=== PATIENT | female | born 1960 | race Caucasian/White ===

== ENCOUNTER → 2023-08-15 07:15 | Outpatient (REF) | payer OTHER, SELFPAY | LOC: HWRAD 07:15 | PROVIDERS: ATTENDING PHYSICIAN Nurse Practitioner Adult Health; FAMILY PHYSICIAN Family Medicine | DX: Z12.31 Encounter for screening mammogram for malignant neoplasm of breast (principal); Z78.0 Asymptomatic menopausal state | CPT/HCPCS: 77063; 77067; 77080 ==

== ENCOUNTER → 2023-11-07 15:28 | Outpatient (REF) | payer OTHER, SELFPAY | LOC: RAD 15:28 | PROVIDERS: ATTENDING PHYSICIAN Family Medicine | DX: M79.89 Other specified soft tissue disorders (principal) | CPT/HCPCS: 93971 ==

== ENCOUNTER 2024-02-21 17:28 | Emergency (ER) | payer OTHER, SELFPAY ==
[2024-02-21 17:46] VITALS: BP 160/89
[2024-02-21 18:17] LABS: % Basophils 0.2 % (0-2); % Immature Granulocytes 0.2 % (0-0.5); % Lymphocytes 26.8 % (20.5-51.1); % Monocytes 7.2 % (1.7-9.3); % Neutrophils 63.6 % (42.2-75.2); Absolute Eosinophils 0.2 10^3/uL (0-0.7); Absolute Lymphocytes 2.3 10^3/uL (1.2-3.4); Absolute Monocytes 0.6 10^3/uL (0.1-0.6); Absolute Neutrophils 5.4 10^3/uL (1.4-6.5); Hematocrit 36.9 % (37.0-47.0); Hemoglobin 12.6 g/dL (12.0-16.0); Mean Corp Hgb Conc. 34.1 g/dL (33.0-37.0); Mean Corpuscular Hgb 29.9 pg (27.0-31.0); Mean Corpuscular Volume 87.4 fL (81.0-99.0); Mean Platelet Volume 10.2 fL (7.4-10.4); Nucleated Red Blood Cells % 0 %; Platelet Count 230 10^3/uL (130-400); Red Blood Cell Count 4.22 10^6/uL (4.20-5.40); Red Cell Dist. Width 13.2 % (11.5-14.5); White Blood Cell Count 8.5 10^3/uL (4.8-10.8)
[2024-02-21 18:41] LABS: ALT (SGPT) 17 U/L (0-35); AST (SGOT) 24 U/L (14-36); Albumin 4.8 g/dl (3.5-5.0); Alkaline Phosphatase 70 U/L (38-126); Blood Urea Nitrogen 15 mg/dl (7-17); Calcium 10.2 mg/dl (8.4-10.2); Carbon Dioxide 27 mmol/L (22-30); Chloride 101 mmol/L (98-107); Glucose 99 mg/dl (70-99); Potassium 4.3 mmol/L (3.5-5.1); Sodium 143 mmol/L (135-145); Total Bilirubin 0.5 mg/dl (0.2-1.3); Total Protein 7.4 g/dl (6.3-8.2); eGFR > 60.00
[2024-02-21 18:51] LABS: Troponin I < 0.012 ng/ml
[2024-02-21 19:09] LABS: TSH 2.62 uIU/ml (0.47-4.68)
--- NOTE | 2024-02-21 19:43 | ED.GENMED ---
History of Present Illness
General
Chief Complaint: Chest Problem
Time Seen by Provider: 02/21/24 19:43
History of Present Illness
History of Present Illness:
TIME OF INITIAL ENCOUNTER: 7:45 PM
HPI: Patient has had several weeks of palpitations. Today at some point between 4 PM and 5 PM [address], she developed left arm discomfort as well as jaw discomfort and had some chest tightness. She has no significant cardiac risk factors�her
mother is still alive at age 102 and all of her older male siblings have never had a heart attack. She does not have high blood pressure diabetes or high cholesterol. The patient had a treadmill stress test about [address] Dawkins.
EXAM:
GENERAL: Well appearing in no distress
HEENT: Moist oral mucosa
CARDIOVASCULAR: No murmurs, normal heart rate, regular rhythm, No chest wall tenderness
PULMONARY: No respiratory distress, breath sounds are clear and equal
ABDOMEN: Soft with no peritoneal signs, no tenderness
NEUROLOGIC: Excellent strength all extremities, no coordination deficits
PSYCHIATRIC: Appropriate mental status, normal insight and judgement
EXTREMITIES: Nontender, no edema, moves all extremities equally
SKIN: No rash, no lesions
NUMBER AND COMPLEXITY OF PROBLEMS ADDRESSED AT THE ENCOUNTER
� Chronic conditions affecting care: Anemia
� Acute Exacerbation and/or Progression of Chronic Illness: This is a subacute problem
� Differential Diagnosis includes: Anxiety, costochondritis, cervical radiculopathy as symptoms seem to get worse when she had her arm up on the steering wheel and then resolved afterwards, ACS less likely
AMOUNT AND/OR COMPLEXITY OF DATA TO BE REVIEWED AND ANALYZED
� I performed an independent evaluation of and my interpretation is:
EKG: Sinus 72, left axis deviation, LVH
CT:
X-rays: I personally reviewed chest x-ray and see no acute abnormality
Laboratory Studies: CBC, chemistries eluding TSH and troponin unremarkable
Other:
� Review of other/old records: The patient had colonoscopy in 2022, she had a treadmill stress test in 2019
� Clinical information was obtained by an independent historian: I spoke to the at bedside
� Prescriptions/Medications Considered but not given:
� Further testing considered but not performed:
RISK OF COMPLICATIONS AND/OR MORBIDITY OR MORTALITY OF PATIENT MANAGEMENT
� Social determinants of health affecting care: Lives at home
� Discussion with other providers:
� Escalation of care including admission/observation vs risk of discharge considered: No clear indication for admission to the hospital. She is to follow-up with cardiology as an outpatient.
ANY OTHER UPDATES:
9:25 PM: I reassessed the patient. She has had some intermittently vague chest discomfort but repeat troponin and repeat EKG unremarkable.
Past History
Past History
ED Past Medical History: None, Other (dry eyes) and Other
ED Past Surgical History: None
Social History
Tobacco: Non-smoker
Alcohol: Occasional
Personal:
Living: with family
Family History
Family History: Other (Mother with diabetes, father with varicose veins)
Phy Exam
Physical Exam
Physical Exam:
See HPI
Course
Orders/Labs/Results
Orders:
Orders
02/21/24 17:30
Electrocardiogram (*1) Urgent
Reason for Study: Chest Pain
EKG- Treatment ONCE
02/21/24 18:04
Complete Blood Count/With Diff Urgent
Comprehensive Metabolic Panel Urgent
TSH Urgent
Troponin I Urgent
02/21/24 19:39
Chest [CR Chest - 2 Views ] Urgent
Comment:
Reason For Exam: chest pain
02/21/24 20:32
Troponin I Urgent
02/21/24 21:07
EKG [Electrocardiogram (*1)] Urgent
Reason for Study: Chest Pain
02/21/24 21:08
EKG- Treatment ONCE
Abnormal Lab Results
02/21/24
18:04
Hct 36.9 L %
(37.0-47.0)
02/21/24 18:04
02/21/24 18:04
Vital Signs
Initial and Last Documented VS:
Initial Vital Signs
Temp Pulse Resp BP Pulse Ox
98.2 F 78 16 160/89 99
02/21/24 17:46 02/21/24 17:46 02/21/24 17:46 02/21/24 17:46 02/21/24 17:46
Last Documented Vital Signs
Temp Pulse Resp BP Pulse Ox
98.2 F 72 17 138/71 99
02/21/24 17:46 02/21/24 21:30 02/21/24 21:30 02/21/24 21:06 02/21/24 21:30
*Critical Care Note
Total Time (30-74mins, 75-104mins- exclusive of procedures): Not Applicable
ED Attending Note
-
Portions of this chart may have been created with voice recognition software.� Occasional wrong word or��sound alike� substitutions may have occurred due to the inherent limitations of voice recognition software.
Discharge Plan
Departure
Patient Disposition: Home (Routine Discharge)
Date of Disposition: 02/21/24
Time of Disposition: 21:31
Patient with high blood pressure during this ER visit?: Yes
Discharge Problem:
Chest pain
Instructions: Chest Pain CBC Follow Up
Prescriptions:
No Action
Multiple Vitamins
1 dose PO DAILY
Patient Comments:
green-lipped muscle
super B complex with C
vit E
Bonetrex Ca with D
turmeric
CBD oil
cyclosporine [Restasis] 10 DROPS dropperette
1 drp DROP BID
Referrals:
Akbar Donohue MD [Active] - Next open appointment
Jing Lares DO [Family Provider] -
Activity Restrictions/Additional Instructions:
2 cardiac blood works including EKGs are unremarkable. Other basic blood work including thyroid testing is normal. Chest x-ray is clear. Somebody from [facility] cardiology should be calling you tomorrow and if you not hear from them, please
call their group. Return here if worse or other concerns
Interventions
Interventions:
*Risk Screen - Suicide Last Done: 02/21/24 19:54
*General Assessment Last Done: 02/21/24 19:54
*Neglect/Abuse Screening Last Done: 02/21/24 19:54
ED- Fall Risk Assessment Last Done: 02/21/24 19:57
*ED COVID-19 Vaccine History Last Done: 02/21/24 19:54
ED- Cardiac Assessment Last Done: 02/21/24 19:57
ED- Pulmonary Assessment Last Done: 02/21/24 19:57
Discharge Date and Time
Print Language: PUERTO RICAN
[2024-02-21 19:54] VITALS: BMI 27.3
[2024-02-21 19:55] VITALS: BP 157/79
[2024-02-21 21:06] VITALS: BP 138/71
[2024-02-21 21:17] LABS: Troponin I < 0.012 ng/ml
== END 2024-02-21 21:38 | disposition home or self-care (01) ==
LOC: EMR 17:28
PROVIDERS: Student in an Organized Health Care Education/Training Program; EMERGENCY PHYSICIAN Emergency Medicine; FAMILY PHYSICIAN Family Medicine
DX: R07.89 Other chest pain (principal)
CPT/HCPCS: 99285; 71046; 80053; 84443; 84484; 85025; 93005

== ENCOUNTER → 2024-03-07 07:06 | Outpatient (REF) | payer OTHER, SELFPAY | LOC: HWRCS 07:06 | PROVIDERS: ATTENDING PHYSICIAN Internal Medicine; FAMILY PHYSICIAN Family Medicine | DX: R07.9 Chest pain, unspecified (principal) | CPT/HCPCS: 93306 ==

== ENCOUNTER → 2024-03-13 09:52 | Outpatient (REF) | payer OTHER, SELFPAY | LOC: RCS 09:52 | PROVIDERS: ATTENDING PHYSICIAN Internal Medicine; FAMILY PHYSICIAN Family Medicine | DX: R07.9 Chest pain, unspecified (principal) | CPT/HCPCS: 93017; 93350 ==

== ENCOUNTER → 2024-06-01 07:54 | Outpatient (REF) | payer OTHER, SELFPAY | LOC: EMG 07:54 | PROVIDERS: ATTENDING PHYSICIAN Physician Assistant Surgical; FAMILY PHYSICIAN Family Medicine | DX: R20.2 Paresthesia of skin (principal) | CPT/HCPCS: 95886; 95909 ==

== ENCOUNTER → 2024-08-24 14:53 | Outpatient (REF) | payer OTHER, SELFPAY | LOC: HWRAD 14:53 | PROVIDERS: ATTENDING PHYSICIAN Family Medicine | DX: H93.A9 Pulsatile tinnitus, unspecified ear (principal) | CPT/HCPCS: 93880 ==